=== PATIENT | male | born 1980 ===

== ENCOUNTER 2016-10-12 05:06 | Emergency (ER) | payer MEDICAID ==
--- NOTE | 2016-10-12 06:27 | ED PDOC ---
HPI: Abdomen Time Seen by Provider: 10/12/16 05:14 Chief Complaint (Nursing): Groin Pain Chief Complaint (Provider): Groin pain History Per: Patient History/Exam Limitations: no limitations Onset/Duration Of Symptoms: Days (x3 weeks) Current Symptoms Are (Timing): Still Present Additional History Per: Patient Additional Complaint(s): Kalpesh Roberson is a 36 year old male with a past medical history of hypertension who presents to the ED with a chief complaint of a rash on his groin onset [id number]. Denies any fever dysuria or difficulty urinating but reports chills and also admits to being diabetic. 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 Past Medical History Reviewed: Historical Data, Nursing Documentation, Vital Signs Vital Signs: Last Vital Signs Temp 96.3 F L 10/12/16 11:50 Pulse 83 10/12/16 11:50 Resp 18 10/12/16 11:50 BP 132/74 10/12/16 11:50 Pulse Ox 97 10/12/16 11:50 - Medical History PMH: Depression, Diabetes, HTN Denies: Chronic Kidney Disease - Surgical History Surgical History: Cholecystectomy - Family History Family History: States: No Known Family Hx - Home Medications Home Medications: Ambulatory Orders Medication Instructions Recorded Clindamycin [Cleocin] 300 mg PO TID #30 cap 10/12/16 Fluconazole [Diflucan] 150 mg PO BID #2 tab 10/12/16 - Allergies Allergies/Adverse Reactions: Allergies Allergy/AdvReac Type Severity Reaction Status Date / Time iodine Allergy RASH Verified 10/12/16 06:02 Review of Systems ROS Statement: Except As Marked, All Systems Reviewed And Found Negative Constitutional: Positive for: Chills. Negative for: Fever Genitourinary Male: Positive for: Rash (Scrotal). Negative for: Dysuria, Other (Difficulty urination) Physical Exam - Reviewed Nursing Documentation Reviewed: Yes Vital Signs Reviewed: Yes - Physical Exam Appears: Positive for: Well, Non-toxic, No Acute Distress Head Exam: Positive for: ATRAUMATIC, NORMAL INSPECTION, NORMOCEPHALIC Skin: Positive for: Normal Color, Warm, Dry Eye Exam: Positive for: Normal appearance, EOMI, PERRL ENT: Positive for: Normal ENT Inspection Neck: Positive for: Normal, Painless ROM, Supple Cardiovascular/Chest: Positive for: Regular Rate, Rhythm. Negative for: Murmur , Tachycardia Respiratory: Positive for: Normal Breath Sounds. Negative for: Wheezing, Respiratory Distress Gastrointestinal/Abdominal: Positive for: Normal Exam, Soft. Negative for: Tenderness Male Genital Exam: Positive for: other (Scrotum erythematous and inflammation). Negative for: testicular tenderness (R), testicular tenderness (L) Back: Positive for: Normal Inspection Rectal: Positive for: Deferred Extremity: Positive for: Normal ROM Lymphatic: Positive for: Deferred Neurologic/Psych: Positive for: Alert, Oriented Comments: Obese and disheveled - Laboratory Results Result Diagrams: 10/12/16 07:37 10/12/16 07:37 - ECG O2 Sat by Pulse Oximetry: 98 (RA) Pulse Ox Interpretation: Normal Medical Decision Making Medical Decision Makin: Initial Impression: Fungal cellulitis vs Bacteria cellulitis, not suspecting Aydee's gangrene. Initial Plan: * Venous blood gas sock panel * Comp metabolic panel * CBC with differentials * Blood culture * Urine culture * UA * Testes duplex complete * Re-Eval Scribe Attestation: Documented by Raul Mckoy acting as a scribe for Galen Alberto MD. Provider Scribe Attestation: All medical record entries made by the Scribe were at my direction and personally dictated by me. I have reviewed the chart and agree that the record accurately reflects my personal performance of the history, physical exam, medical decision making, and the department course for this patient. I have also personally directed, reviewed, and agree with the discharge instructions and disposition. Disposition - Clinical Impression Clinical Impression: Cellulitis of scrotum - Disposition Referrals: Adalberto Parks Jr., MD [Staff Provider] - Disposition: Transfer of Care Disposition Time: 07:00 Condition: FAIR Prescriptions: Clindamycin [Cleocin] 300 mg PO TID #30 cap Fluconazole [Diflucan] 150 mg PO BID #2 tab Instructions: Cellulitis (ED) Patient Signed Over To: Kit Arevalo Handoff Comments: pending bloodwork and U/S
--- NOTE | 2016-10-12 07:21 | ED PDOC ---
- Laboratory Results Result Diagrams: 10/12/16 07:37 10/12/16 07:37 - ECG O2 Sat by Pulse Oximetry: 98 (RA) Pulse Ox Interpretation: Normal Medical Decision Making Medical Decision Makin:00 Patient was signed out to me by Galen Alberto MD pending ultrasound and final disposition. 10:51 US FINDINGS: Right testicle: The right testicle measures 3.8 x 2.2 x 2.6 cm. No focal lesions or acute changes. No torsion. Left testicle: The left testicle measures 3.8 x 1.5 x 2.7 cm. No focal lesions or acute changes. No torsion. Epididymides: The right epididymis is mildly enlarged and edematous. No focal lesions. There is a 2 mm epididymal cyst on the left. The left epididymis is otherwise unremarkable. Scrotum: Unremarkable. IMPRESSION: Mild right-sided epididymitis. Scribe Attestation: Documented by Cami Harrison, acting as a scribe for Kit Arevalo MD. Provider Scribe Attestation: All medical record entries made by the Scribe were at my direction and personally dictated by me. I have reviewed the chart and agree that the record accurately reflects my personal performance of the history, physical exam, medical decision making, and the department course for this patient. I have also personally directed, reviewed, and agree with the discharge instructions and disposition. Disposition - Clinical Impression Clinical Impression: Cellulitis of scrotum - POA Present On Arrival: None - Disposition Referrals: Adalberto Parks Jr., MD [Staff Provider] - Disposition: Routine/Home Disposition Time: 11:22 Condition: FAIR Prescriptions: Clindamycin [Cleocin] 300 mg PO TID #30 cap Fluconazole [Diflucan] 150 mg PO BID #2 tab Instructions: Cellulitis (ED)
[2016-10-12 08:15] LABS: VENOUS BLOOD GAS BASE EXCESS 2.4 mmol/L (0.0-2.0); VENOUS BLOOD GAS PCO2 51 mmHg (40-60); VENOUS BLOOD PH 7.36 (7.32-7.43)
[2016-10-12 08:22] LABS: ALB/GLOB RATIO 1.1 (1.0-2.1); ALKALINE PHOSPHATASE 105 U/L (38-126); ALT/SGPT 34 U/L (21-72); AST/SGOT 33 U/L (17-59); BILIRUBIN,TOTAL 0.5 mg/dl (0.2-1.3); BLOOD UREA NITROGEN 13 mg/dl (9-20); CALCIUM 9.5 mg/dL (8.4-10.2); CARBON DIOXIDE 25 mmol/L (22-30); CHLORIDE 104 mmol/L (98-107); GFR AFRICAN-AMERICAN > 60; GLUCOSE,RANDOM 200 mg/dL (75-110); POTASSIUM 3.8 MMOL/L (3.6-5.0); SODIUM 140 mmol/l (132-148); TOTAL PROTEIN 7.5 G/DL (6.3-8.2)
[2016-10-12 08:23] LABS: BASO % 0.4 % (0.0-2.0); EOS % 0.4 % (0.0-4.0); LYMPH # 2.9 K/uL (1.0-4.3); LYMPH % 30.7 % (20.0-40.0); MEAN CELL VOLUME 89.1 fl (80.0-94.0); MEAN CORPUSCULAR HEMOGLOBIN 29.1 pg (27.0-31.0); MEAN CORPUSCULAR HGB CONC 32.7 g/dL (33.0-37.0); MEAN PLATELET VOLUME 9.3 fl (7.2-11.7); MONO # 0.8 K/uL (0.0-0.8); MONO % 7.8 % (0.0-10.0); NEUT # 5.8 K/uL (1.8-7.0); NEUT % 60.7 % (50.0-75.0); RED CELL DISTRIBUTION WIDTH 13.8 % (11.5-14.5); WHITE BLOOD COUNT 9.6 K/uL (4.8-10.8)
[2016-10-12 11:51] VITALS: BP 132/74; PULSE 83; RESP 18; TEMP 96.3
[2016-10-12 12:02] LABS: RBC URINE 12 /hpf (0-3); URINE BACTERIA RARE (<OCC); URINE BILIRUBIN NEGATIVE (NEGATIVE); URINE BLOOD NEGATIVE (NEGATIVE); URINE COLOR YELLOW (YELLOW); URINE GLUCOSE (UA) 50 mg/dL (Normal); URINE KETONE NEGATIVE (NEGATIVE); URINE LEUKOCYTE ESTERASE LARGE Leu/uL (Negative); URINE PROTEIN 30 mg/dL (NEGATIVE); URINE UROBILINOGEN 0.2-1.0 mg/dL (0.2-1.0); WBC URINE 32 /hpf (0-5)
--- NOTE | 2016-10-14 08:16 | US ---
HISTORY: testicular pain TECHNIQUE: Realtime sonography through the scrotum with color and doppler flow. COMPARISON: None Available. FINDINGS: RIGHT TESTICLE: Measures 2.2 x 2.6 x 3.8 cm. Normal echotexture and flow. RIGHT EPIDIDYMIS: Epididymal head measures 0.9 x 1.5 cm. Grossly unremarkable appearance with normal flow. LEFT TESTICLE: Measures 1.52.7 x 3.8 cm. Normal echotexture and flow.Incidental finding(s): Echogenic focus lower pole 1 mm. Finding is of uncertain etiology and doubtful clinical significance LEFT EPIDIDYMIS: Epididymal head measures 0.8 cm. Grossly unremarkable appearance with normal flow.Incidental finding(s): 1 mm cyst HYDROCELE: None. VARICOCELE: None. OTHER FINDINGS: None. IMPRESSION: No significant or acute findings to account for/ related to the clinical presentation.
[2016-10-15 19:09] VITALS: O2SAT 98
== END 2016-10-12 12:00 | disposition home or self-care (01) ==
LOC: H.ER 05:06
DX: N45.1 Epididymitis (principal); N49.2 Inflammatory disorders of scrotum